=== PATIENT | female | born 1995 ===

== ENCOUNTER → 2019-01-04 | Outpatient (CLI) | payer OTHER ==
[~2019-01-04] MED LIST: ETHI1TAB3 PO; SPIR25TA80 PO; VALA100062 PO
[2019-01-04 11:52] LABS: PLATELET COUNT, AUTOMATED 358 K/uL (150-450)
== END ==
LOC: LAB 11:37
PROVIDERS: ATTEND Emergency Medicine
DX: L70.0 Acne vulgaris (principal)
CPT/HCPCS: 36415; 82040; 82247; 82310; 82374; 82435; 82565; 82947; 84075; 84132; 84155; 84295; 84443; 84450; 84460; 84520; 85025